=== PATIENT | male | born 1995 | race African-American/Black ===

== ENCOUNTER 2016-09-06 23:50 | Emergency (ER) | payer SELFPAY | END 2016-09-07 00:22 | disposition home or self-care (01) | LOC: CED 23:50 | DX: S13.4XXA Sprain of ligaments of cervical spine, initial encounter (principal); I10 Essential (primary) hypertension; F17.200 Nicotine dependence, unspecified, uncomplicated; V49.00XA Driver injured in collision with unspecified motor vehicles in nontraffic accident, initial encounter | CPT/HCPCS: 99283 ==